=== PATIENT | male | born 1995 ===

== ENCOUNTER 2019-04-30 09:03 | Emergency (ER) | payer SELFPAY ==
[2019-04-30] MEDS ORDERED: IBUPROFEN 800 MG (MOTRIN) TAB PO ONE (09:45)
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
[2019-04-30] MEDS ORDERED: IBUP-1780 PO (11:04)
[2019-04-30 11:32] VITALS: BP 127/66
== END 2019-04-30 11:34 | disposition home or self-care (01) ==
LOC: ER FS 09:05
DX: M54.2 Cervicalgia (principal); M54.5 Low back pain; M25.571 Pain in right ankle and joints of right foot; R40.2142 Coma scale, eyes open, spontaneous, at arrival to emergency department; R40.2252 Coma scale, best verbal response, oriented, at arrival to emergency department; R40.2362 Coma scale, best motor response, obeys commands, at arrival to emergency department; V49.50XA Passenger injured in collision with unspecified motor vehicles in traffic accident, initial encounter
CPT/HCPCS: 72040; 72070; 72100; 73600